=== PATIENT | female | born 1970 | race Caucasian/White ===

== ENCOUNTER 2021-11-29 13:25 | Emergency (ER) | payer BC ==
[~2021-11-29] VITALS: Ht 165.1 cm; Wt 45.5 kg
[2021-11-29 13:29] VITALS: TEMP 98.6
[2021-11-29] MEDS ORDERED: NORCO 325 MG-51 TAB PO (15:37)
[2021-11-29 17:02] VITALS: BP 116/71; PULSE 80
== END 2021-11-29 17:10 | disposition home or self-care (01) ==
LOC: COL.ER 13:25
DX: S82.132A Displaced fracture of medial condyle of left tibia, initial encounter for closed fracture (principal); S82.131A Displaced fracture of medial condyle of right tibia, initial encounter for closed fracture; Z89.612 Acquired absence of left leg above knee; W01.0XXA Fall on same level from slipping, tripping and stumbling without subsequent striking against object, initial encounter
CPT/HCPCS: J1170; J2270; L1830; L1846